=== PATIENT | female | born 1940 | race Hispanic/Latino ===

== ENCOUNTER 2019-05-30 16:18 | Emergency (ER) | payer MEDICARE ==
--- NOTE | 2019-05-30 16:28 | Event Note ---
ED Screening Note Date of service: 05/30/19 Time: 16:21 ED Screening Note: This is a 78 y.o. F. that presents to the ER with nosebleed, pain to lower lip, right great toe, and left knee s/p fall at home. PMH of HTN, A. fib, cirrhosis This initial assessment/diagnostic orders/clinical plan/treatment(s) is/are subject to change based on patients health status, clinical progression and re- assessment by fellow clinical providers in the ED. Further treatment and workup at subsequent clinical providers discretion. Patient/guardian urged not to elope from the ED as their condition may be serious if not clinically assessed and managed. Initial orders include: CT of head, XR left knee, right toes
--- NOTE | 2019-05-30 16:44 | Emergency Department Report ---
ED Fall HPI - General Chief Complaint: Fall Stated Complaint: FACE INJURY/FOOT Time Seen by Provider: 05/30/19 16:21 Source: patient, family Mode of arrival: Wheelchair - History of Present Illness Initial Comments: Patient is 78-year-old female with history of liver cirrhosis and hypertension. Patient brought to the emergency room accompanied by her 2 daughters for evaluation after a fall that happened just prior to coming to the ER. Patient tripped and fell and hit her head with complaint of minor headache and abrasion to the lower lip. Patient denied any loss of consciousness, new weakness numbness or tingling sensation. Patient is also complaining of lower back pain and right knee pain. Patient is on Elliquis for atrial fibrillation. 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 Fall Witnessed: yes, by family Place Fall Occurred: home Loss of Consciousness: none Prolonged Down Time?: no Symptoms Prior to Fall: none Location: head, face, back Location - Extremities: Right: Knee, Foot Severity: moderate Severity scale (0 -10): 3 Quality: sharp Context: tripped/slipped Associated Symptoms: denies - Related Data Allergies Allergy/AdvReac Type Severity Reaction Status Date / Time Sulfa (Sulfonamide Allergy Unknown Verified 05/30/19 16:25 Antibiotics) ED Review of Systems ROS: Stated complaint: FACE INJURY/FOOT Other details as noted in HPI Comment: All other systems reviewed and negative Constitutional: denies: chills, fever Respiratory: denies: cough, orthopnea, shortness of breath, SOB with exertion, SOB at rest Cardiovascular: denies: chest pain, palpitations Gastrointestinal: denies: abdominal pain, nausea, vomiting, diarrhea, constipation, hematemesis, hematochezia Musculoskeletal: back pain Neurological: denies: headache, weakness, numbness, paresthesias, confusion, abnormal gait ED Past Medical Hx - Past Medical History Previous Medical History?: Yes Hx Hypertension: Yes Hx Liver Disease: Yes (cirrhosis) Hx Arthritis: Yes Additional medical history: A.Fib - Surgical History Past Surgical History?: Yes Additional Surgical History: bilateral knee replacement - Social History Smoking Status: Never Smoker Substance Use Type: Prescribed ED Physical Exam - General Limitations: Physical Limitation General appearance: alert, in no apparent distress - Head Head exam: Present: atraumatic, normocephalic, normal inspection - Eye Eye exam: Present: normal appearance, PERRL - ENT ENT exam: Present: other (abrasion to the lower lip) - Neck Neck exam: Present: normal inspection, full ROM. Absent: tenderness, meningismus, lymphadenopathy, thyromegaly - Respiratory Respiratory exam: Present: normal lung sounds bilaterally - Cardiovascular Cardiovascular Exam: Present: regular rate, normal rhythm, normal heart sounds - GI/Abdominal GI/Abdominal exam: Present: soft, distended, normal bowel sounds. Absent: tenderness, guarding, rebound, rigid, organomegaly, mass, bruit, pulsatile mass, hernia - Extremities Exam Extremities exam: Present: normal inspection, full ROM, normal capillary refill. Absent: tenderness, pedal edema, calf tenderness - Back Exam Back exam: Present: normal inspection, full ROM. Absent: tenderness, CVA tenderness (R), CVA tenderness (L), muscle spasm, paraspinal tenderness, vertebral tenderness - Neurological Exam Neurological exam: Present: alert, oriented X3, CN II-XII intact, normal gait, reflexes normal - Psychiatric Psychiatric exam: Present: normal mood - Skin Skin exam: Present: warm, intact, normal color ED Course Vital Signs 05/30/19 16:20 Temperature 97.2 F L Pulse Rate 99 H Respiratory 18 Rate Blood Pressure 120/69 O2 Sat by Pulse 99 Oximetry ED Medical Decision Making - Radiology Data Radiology results: report reviewed - Medical Decision Making Patient is 78-year-old female with history of liver cirrhosis and hypertension. Patient brought to the emergency room accompanied by her 2 daughters for evaluation after a fall that happened just prior to coming to the ER. Patient tripped and fell and hit her head with complaint of minor headache and abrasion to the lower lip. Patient denied any loss of consciousness, new weakness numbness or tingling sensation. Patient is also complaining of lower back pain and right knee pain. Patient is on Elliquis for atrial fibrillation. CT brain is negative for acute finding. CT lumbar is negative for acute finding. CT facial bone is unremarkable. Right knee x-ray is negative for acute finding. Patient stated that she does not want any pain medicine. Patient discharged home in stable condition, alert oriented 3. Patient discharged with her to daughter. Patient and her daughter advised to return to the ER if symptoms get worse. Critical care attestation.: If time is entered above; I have spent that time in minutes in the direct care of this critically ill patient, excluding procedure time. ED Disposition Clinical Impression: Fall, Head injury Disposition: DC-01 TO HOME OR SELFCARE Is pt being admited?: No Condition: Stable Instructions: Minor Head Injury (ED), Fall Prevention (ED) Referrals: AMERICA NEGRO MD [Primary Care Provider] - 3-5 Days
--- NOTE | 2019-05-30 17:08 | XRay Report ---
RIGHT KNEE 3 VIEW(S) INDICATION / CLINICAL INFORMATION: anterior knee pain, s/p fall COMPARISON: None available. FINDINGS: Intact total knee prosthesis without evidence of hardware failure, loosening or periprosthetic fractu re. No excess joint fluid is seen. Vascular calcifications are noted. Signer Name: Nawaf Salvador MD Signed: 05/30/2019 5:03 PM Workstation Name: [id number]
--- NOTE | 2019-05-30 17:10 | XRay Report ---
RIGHT TOE(S) 3 VIEW(S) INDICATION / CLINICAL INFORMATION: great toe pain, r/o fx, s/p fall COMPARISON: None available. FINDINGS: BONES / JOINT(S): No acute fracture or malalignment of the great toe. Moderate osteoarthritic changes are present at multiple midfoot joints and at the great toe metatarsophalangeal joint. Diffuse, sugg estive osteopenia is present. SOFT TISSUES: Diffuse vascular calcifications are present. ADDITIONAL FINDINGS: None. Signer Name: Nawaf Salvador MD Signed: 05/30/2019 5:05 PM Workstation Name: [id number]
--- NOTE | 2019-05-30 19:30 | Cat Scan Report ---
CT LUMBAR SPINE WITHOUT CONTRAST INDICATION / CLINICAL INFORMATION: fall. TECHNIQUE: Axial CT images were obtained through the lumbar spine. Sagittal and coronal reformatted images were produced. All CT scans at this location are performed using CT dose reduction for ALARA by means of a utomated exposure control. COMPARISON: None available. FINDINGS: Diffuse, subjective osteopenia is present. No acute fracture or malalignment of the lumbar spine is i dentified. Advanced degenerative changes are present at the sacroiliac joints, facet joints, and inte rvertebral discs of the lumbar spine. Grade 1 anterolisthesis of L5 over S1 is noted. Vacuum disc phe nomenon is present in L1-L2 and L2-L3 disc spaces. Incidental note is made of a dilated extrarenal pelvis of the left kidney and large volume of ascites in the visualized abdomen. Small left and trace right pleural effusions are present. IMPRESSION: 1. No acute fracture or malalignment of the lumbar spine. 2. Large volume of ascites and small pleural effusions. Signer Name: Nawaf Salvador MD Signed: 05/30/2019 7:26 PM Workstation Name: [id number]
--- NOTE | 2019-05-30 19:34 | Cat Scan Report ---
CT head/brain without contrast INDICATION: fall injury. TECHNIQUE: Routine CT head without contrast. All CT scans at this location are performed using CT dos e reduction for ALARA by means of automated exposure control. COMPARISON: None. FINDINGS: BRAIN / INTRACRANIAL CONTENTS: No acute hemorrhage, mass effect, midline shift, or hydrocephalus. No appreciable acute large territorial or lacunar infarct. ORBITS: No significant abnormality of visualized orbits. SINUSES / MASTOIDS: No significant abnormality of visualized sinuses and mastoid air cells. ADDITIONAL FINDINGS: None. IMPRESSION: 1. No acute intracranial abnormality. Signer Name: Nawaf Salvador MD Signed: 05/30/2019 7:30 PM Workstation Name: [id number]
--- NOTE | 2019-05-30 19:58 | Cat Scan Report ---
The CT facial bones without contrast CLINICAL HISTORY: Facial pain and trauma FINDINGS: There is no CT evidence of acute fracture involving the facial bones on the axial images at . The coronal and sagittal reconstructions are suboptimal. The paranasal sinuses are clear without ai r-fluid levels. There is mild deviation of the nasal septum toward the left at. The optic globes demo nstrate appropriate size and configuration. No significant post septal inflammatory changes are ident ified at. The visualized mastoid air cells are pneumatized. 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 All CT scans at this location are performed using the CT do se reduction for ALARA by means of automated exposure control. IMPRESSION: There is no CT ends of acute fracture involving the facial bones. Signer Name: Joseph Pope MD Signed: 05/30/2019 7:54 PM Workstation Name: [id number]
[2019-05-30 20:46] VITALS: BP 111/81
== END 2019-05-30 20:46 | disposition home or self-care (01) ==
LOC: ED 16:18
DX: S00.511A Abrasion of lip, initial encounter (principal); S09.90XA Unspecified injury of head, initial encounter; M54.5 Low back pain; M25.561 Pain in right knee; I10 Essential (primary) hypertension; K74.60 Unspecified cirrhosis of liver; M19.90 Unspecified osteoarthritis, unspecified site; I48.91 Unspecified atrial fibrillation; Z79.01 Long term (current) use of anticoagulants; Z96.653 Presence of artificial knee joint, bilateral; Z88.2 Allergy status to sulfonamides; W01.10XA Fall on same level from slipping, tripping and stumbling with subsequent striking against unspecified object, initial encounter; Y93.89 Activity, other specified; Y92.019 Unspecified place in single-family (private) house as the place of occurrence of the external cause; Y99.8 Other external cause status
CPT/HCPCS: 70450; 70486; 72131

== ENCOUNTER 2019-06-06 08:38 | Inpatient (IN) | payer MEDICARE ==
[2019-06-06 09:22] LABS: Basophils % (Auto) 0.8 % (0.0-1.8); Eosinophils # (Auto) 0.1 K/mm3 (0.0-0.4); Eosinophils % (Auto) 3.9 % (0.0-4.3); Hematocrit 32.5 % (30.3-42.9); Hemoglobin 10.6 gm/dl (10.1-14.3); Lymphocytes # (Auto) 0.6 K/mm3 (1.2-5.4); Lymphocytes % (Auto) 22.7 % (13.4-35.0); Mean Corpuscular HGB Conc 33 % (30-34); Mean Corpuscular Volume 87 fl (79-97); Monocytes # (Auto) 0.2 K/mm3 (0.0-0.8); Monocytes % (Auto) 8.8 % (0.0-7.3); Platelet Count 132 K/mm3 (140-440); Red Blood Count 3.72 M/mm3 (3.65-5.03); Red Cell Distribution Width 16.9 % (13.2-15.2)
--- NOTE | 2019-06-06 09:34 | Emergency Department Report ---
ED General Adult HPI - General Chief complaint: GI Bleed Stated complaint: NOSE BLEED Time Seen by Provider: 06/06/19 08:52 Source: patient Mode of arrival: Ambulatory Limitations: No Limitations - History of Present Illness Initial comments: 78-year-old female was seen here one week ago after a fall. CT of the head and face was negative for acute injury. She was on anticoagulants at that time. She told the nurse that she has just taken 2 doses of Eliquis over the last 24 hours. She also admitted to me that she took 3 Naprosyn. She developed a n osebleed draining posteriorly today. She states that she spit up a clot. She comes in holding pressure on her nose. She states that she cannot identify what side of her nose was bleeding. However on inspection appears to be likely the right side. He denies any shortness of breath but felt like she was choking when she states she manually remove the clot from her mouth. Patient states that Dr. 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 She states that she receives almost weekly paracentesis at [facility]. She states "my belly is about to burst". She is not on dialysis but has chronic kidney disease. -: minutes(s) Severity scale (0 -10): 0 Associated Symptoms: other (progressive abdominal distention secondary to ascites) Treatments Prior to Arrival: none - Related Data Allergies Allergy/AdvReac Type Severity Reaction Status Date / Time Sulfa (Sulfonamide Allergy Unknown Verified 05/30/19 16:25 Antibiotics) ED Review of Systems ROS: Stated complaint: NOSE BLEED Other details as noted in HPI Constitutional: denies: chills, fever Eyes: denies: eye pain, eye discharge, vision change ENT: as per HPI. denies: ear pain, throat pain Respiratory: denies: cough, shortness of breath, wheezing Cardiovascular: denies: chest pain, palpitations Endocrine: no symptoms reported Gastrointestinal: other (abdominal distention). denies: abdominal pain, nausea, diarrhea Genitourinary: denies: urgency, dysuria, discharge Musculoskeletal: denies: back pain, joint swelling, arthralgia Skin: denies: rash, lesions Neurological: denies: headache, weakness, paresthesias Psychiatric: denies: anxiety, depression Hematological/Lymphatic: as per HPI. denies: easy bleeding, easy bruising ED Past Medical Hx - Past Medical History Previous Medical History?: Yes Hx Hypertension: Yes Hx CVA: No Hx Heart Attack/AMI: No Hx Congestive Heart Failure: No Hx Diabetes: No Hx Deep Vein Thrombosis: No Hx Pulmonary Embolism: No Hx GERD: No Hx Liver Disease: Yes (cirrhosis) Hx Renal Disease: Yes Hx of Cancer: No Hx Sickle Cell Disease: No Hx Arthritis: Yes Hx Headaches / Migraines: No Hx Seizures: No Hx Kidney Stones: No Hx Psychiatric Treatment: No Hx Asthma: No Hx COPD: No Hx Tuberculosis: No Hx Dementia: No Hx HIV: No Additional medical history: A.Fib - Surgical History Past Surgical History?: Yes Hx Coronary Stent: No Hx Open Heart Surgery: No Hx Pacemaker: No Hx Internal Defibrillator: No Hx Cholecystectomy: No Hx Appendectomy: No Hx Breast Surgery: No Additional Surgical History: bilateral knee replacement - Social History Smoking Status: Former Smoker Substance Use Type: None ED Physical Exam - General Limitations: No Limitations General appearance: other (chronically ill-appearing) - Head Head exam: Present: other (acquired nasal deformity which looks chronic) - Eye Eye exam: Absent: scleral icterus - ENT ENT exam: Present: other (there is a minimal amount of blood in the posterior pharynx. Looks like right sided epistaxis which is not at all active) - Neck Neck exam: Absent: tenderness, meningismus - Respiratory Respiratory exam: Present: normal lung sounds bilaterally - Cardiovascular Cardiovascular Exam: Present: regular rate, irregular rhythm, systolic murmur - GI/Abdominal GI/Abdominal exam: Present: soft, distended, normal bowel sounds, other (tense ascites) - Extremities Exam Extremities exam: Present: normal inspection - Neurological Exam Neurological exam: Present: alert, oriented X3, CN II-XII intact. Absent: motor sensory deficit - Psychiatric Psychiatric exam: Present: anxious, flat affect - Skin Skin exam: Present: warm, dry, intact, normal color. Absent: rash ED Course Vital Signs 06/06/19 06/06/19 06/06/19 08:47 08:53 09:00 Temperature 98.6 F Pulse Rate 117 H 115 H 102 H Respiratory 14 18 16 Rate Blood Pressure 126/73 119/63 Blood Pressure 126/73 [Right] O2 Sat by Pulse 100 100 100 Oximetry 06/06/19 06/06/19 06/06/19 09:15 09:31 09:45 Temperature Pulse Rate 108 H 103 H 113 H Respiratory 10 L 12 17 Rate Blood Pressure 119/63 119/63 119/63 Blood Pressure [Right] O2 Sat by Pulse 99 98 98 Oximetry 06/06/19 10:00 Temperature Pulse Rate 100 H Respiratory 13 Rate Blood Pressure 121/60 Blood Pressure [Right] O2 Sat by Pulse 100 Oximetry - Reevaluation(s) Reevaluation #1: This point I would prefer to observe the patient rather than applying a Rhino Rocket. It looks like her epistaxis has or is resolving. We will see if she needs intervention. She has tense ascites anyway. She will ultimately likely be admitted. 06/06/19 09:36 Reevaluation #2: Bleeding remains resolved. Patient will be admitted for further care and treatment by the hospitalist service. 06/06/19 10:30 ED Medical Decision Making - Lab Data Result diagrams: 06/06/19 09:02 06/06/19 09:02 - EKG Data -: EKG Interpreted by Me Rate: tachycardia - EKG Data Interpretation: nonspecific ST-T wave ilene, other (atrial fibrillation with rapid ventricular response) - Radiology Data Radiology results: report reviewed, image reviewed Cardiomegaly, chronic changes. Critical care attestation.: If time is entered above; I have spent that time in minutes in the direct care of this critically ill patient, excluding procedure time. ED Disposition Clinical Impression: Epistaxis, Renal insufficiency, Atrial fibrillation with rapid ventricular response, Hypokalemia Ascites Qualifiers: Ascites type: other type Qualified Code(s): R18.8 - Other ascites Disposition: OP ADMIT IP TO THIS HOSP Is pt being admited?: Yes Does the pt Need Aspirin: No Condition: Stable Forms: Accompanied Note Time of Disposition: 10:31
[2019-06-06 09:39] LABS: INR 1.68 (0.87-1.13); Partial Thromboplastin Time 41.7 Sec. (24.2-36.6)
[2019-06-06 09:41] LABS: Creatine Kinase MB 1.4 ng/mL (0.0-4.0)
[2019-06-06 09:42] LABS: Alanine Aminotransferase 6 units/L (7-56); Albumin 2.9 g/dL (3.9-5); BUN/Creatinine Ratio 23; Blood Urea Nitrogen 42 mg/dL (7-17); Calcium 9.1 mg/dL (8.4-10.2); Hemolysis Index 0
[2019-06-06 09:44] LABS: Bilirubin,Direct < 0.2 mg/dL (0-0.2)
--- NOTE | 2019-06-06 10:00 | XRay Report ---
CHEST 1 VIEW INDICATION: Shortness of breath. COMPARISON: None. FINDINGS: Support devices: None. Heart: Upper limits of normal. Lungs/Pleura: No consolidation or effusion. There are mild increased reticular markings which may be chronic. IMPRESSION: 1. Mild increased reticular markings which may be chronic. Heart size is at the upper limits of basia l. Signer Name: Edvin Fonseca MD Signed: 06/06/2019 9:55 AM Workstation Name: [id number]
[2019-06-06] MEDS ORDERED: K-DUR PO ONE (10:11)
[2019-06-06] MEDS ORDERED: ZOFRAN IV PRN (16:07)
[2019-06-06] MEDS ORDERED: SODIUM CHLORIDE FLUSH SYRINGE 10 ML IV PRN (16:07)
[2019-06-06] MEDS: LASIX PO SCH (18:02)
[2019-06-06] MEDS ORDERED: NON-FORMULARY (Furosemide 40 MG) PO SCH (22:00)
[2019-06-06] MEDS ORDERED: CYCLOBENZAPRINE PO SCH (22:00)
[2019-06-06] MEDS: SODIUM CHLORIDE FLUSH SYRINGE 10 ML IV SCH (22:14)
[2019-06-06] MEDS: FLEXERIL PO SCH (22:14)
--- NOTE | 2019-06-06 23:32 | History and Physical Report ---
History of Present Illness Date of admission: 06/06/19 10:31 Chief complaint: i have bleeding from my nose History of present illness: 78 year old woman who presented to the hospital when he was bleeding. She takes eliquis blood thinner for atrial fibrillation. 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 She fell and fell on her face the day before. After which she noted that she had a nosebleed, she had blood and blood clots running down her throat and coming out of her mouth. She then lay down to sleep and then had blood running down her throat. Have family came to visit her and then brought her to the hospital -she is also c/o abdominal distension, states that she is due for paracentesis soon She was recently taken off naproxen due [place] ckd after having taking it for many years Pmh Hypertension, fatty liver disease with cirrhosis receives paracentesis every 1-2 weeks, afib on eliquis, ckd, gout Psh Bilateral knee replacement Social history Former smoker, denies the use of alcohol illicit drugs Medications and Allergies Allergies Allergy/AdvReac Type Severity Reaction Status Date / Time Sulfa (Sulfonamide Allergy Unknown Verified 05/30/19 16:25 Antibiotics) Home Medications Medication Instructions Recorded Confirmed Last Taken Type Allopurinol 100 mg PO QDAY 06/06/19 06/06/19 Unknown History Apixaban [Eliquis] 5 mg PO BID 06/06/19 06/06/19 06/05/19 20:00 History Cyclobenzaprine 7.5 MG TAB 5 mg PO QHS 06/06/19 06/06/19 06/05/19 History Furosemide 40 mg PO BID 06/06/19 06/06/19 06/05/19 History Metoprolol Tartrate 50 mg PO QDAY 06/06/19 06/06/19 06/05/19 History 50 Spironolactone 25 mg QDAY 06/06/19 06/06/19 06/05/19 History traMADol 50 mg PO PRN 06/06/19 Unknown History Active Meds: Active Medications Acetaminophen (Tylenol) 650 mg PO Q4H PRN PRN Reason: Pain MILD(1-3)/Fever >100.5/SMART Allopurinol (Zyloprim) 100 mg PO QDAY [facility] Cyclobenzaprine HCl (Flexeril) 5 mg PO QHS [facility] Last Admin: 06/06/19 22:14 Dose: 5 mg Documented by: Furosemide (Lasix) 40 mg PO 0600,1800 [facility] Last Admin: 06/06/19 18:02 Dose: 40 mg Documented by: Hydrophilic Ointment (Vaseline) 1 applic TP Q12H [facility] Metoprolol Succinate (Toprol Xl) 50 mg PO QDAY [facility] Ondansetron HCl (Zofran) 4 mg IV Q8H PRN PRN Reason: Nausea And Vomiting Sodium Chloride (Sodium Chloride Flush Syringe 10 Ml) 10 ml IV BID [facility] Last Admin: 06/06/19 22:14 Dose: 10 ml Documented by: Sodium Chloride (Sodium Chloride Flush Syringe 10 Ml) 10 ml IV PRN PRN PRN Reason: LINE FLUSH Spironolactone (Aldactone) 25 mg PO QDAY [facility] Review of Systems All systems: negative Constitutional: no anorexia Ears, nose, mouth and throat: no ear pain Breasts: deferred Cardiovascular: no chest pain Respiratory: no cough Gastrointestinal: no abdominal pain Rectal: no pain Musculoskeletal: no neck stiffness Integumentary: no rash Neurological: head injury Psychiatric: no anxiety Endocrine: no cold intolerance Hematologic/Lymphatic: easy bruising Allergic/Immunologic: no urticaria Exam - Constitutional Vitals: Temp Pulse Resp BP Pulse Ox 97.8 F 96 H 18 126/64 98 06/06/19 19:49 06/06/19 19:49 06/06/19 19:49 06/06/19 19:49 06/06/19 19:49 General appearance: Present: no acute distress, well-nourished - EENT Eyes: Present: PERRL ENT: hearing intact, clear oral mucosa - Neck Neck: Present: supple, normal ROM - Respiratory Respiratory effort: normal Respiratory: bilateral: CTA - Cardiovascular Heart Sounds: Present: S1 & S2. Absent: rub, click - Extremities Extremities: pulses symmetrical, No edema Peripheral Pulses: within normal limits - Abdominal General gastrointestinal: Present: soft, non-tender, non-distended, normal bowel sounds Female genitourinary: Present: normal - Integumentary Integumentary: Present: clear, warm, dry (bruises and echymosis on UE) - Musculoskeletal Musculoskeletal: gait normal, strength equal bilaterally - Psychiatric Psychiatric: appropriate mood/affect, intact judgment & insight - Neurologic Neurologic: CNII-XII intact, moves all extremities Results - Labs CBC & Chem 7: 06/06/19 09:02 06/06/19 09:02 Labs: Laboratory Last Values WBC 2.5 K/mm3 (4.5-11.0) L 06/06/19 09:02 RBC 3.72 M/mm3 (3.65-5.03) 06/06/19 09:02 Hgb 10.6 gm/dl (10.1-14.3) 06/06/19 09:02 Hct 32.5 % (30.3-42.9) 06/06/19 09:02 MCV 87 fl (79-97) 06/06/19 09:02 MCH 29 pg (28-32) 06/06/19 09:02 MCHC 33 % (30-34) 06/06/19 09:02 RDW 16.9 % (13.2-15.2) H 06/06/19 09:02 Plt Count 132 K/mm3 (140-440) L 06/06/19 09:02 Lymph % (Auto) 22.7 % (13.4-35.0) 06/06/19 09:02 [place] % (Auto) 8.8 % (0.0-7.3) H 06/06/19 09:02 Eos % (Auto) 3.9 % (0.0-4.3) 06/06/19 09:02 Baso % (Auto) 0.8 % (0.0-1.8) 06/06/19 09:02 Lymph # 0.6 K/mm3 (1.2-5.4) L 06/06/19 09:02 [place] # 0.2 K/mm3 (0.0-0.8) 06/06/19 09:02 Eos # 0.1 K/mm3 (0.0-0.4) 06/06/19 09:02 Baso # 0.0 K/mm3 (0.0-0.1) 06/06/19 09:02 Seg Neutrophils % 63.8 % (40.0-70.0) 06/06/19 09:02 Seg Neutrophils # 1.6 K/mm3 (1.8-7.7) L 06/06/19 09:02 PT 19.4 Sec. (12.2-14.9) H 06/06/19 09:02 INR 1.68 (0.87-1.13) H 06/06/19 09:02 APTT 41.7 Sec. (24.2-36.6) H 06/06/19 09:02 Sodium 139 mmol/L (137-145) 06/06/19 09:02 Potassium 3.3 mmol/L (3.6-5.0) L 06/06/19 09:02 Chloride 103.2 mmol/L (98-107) 06/06/19 09:02 Carbon Dioxide 23 mmol/L (22-30) 06/06/19 09:02 16 mmol/L 06/06/19 09:02 BUN 42 mg/dL (7-17) H 06/06/19 09:02 1.8 mg/dL (0.7-1.2) H 06/06/19 09:02 Estimated GFR 27 ml/min 06/06/19 09:02 23 % 06/06/19 09:02 Glucose 111 mg/dL (65-100) H 06/06/19 09:02 Calcium 9.1 mg/dL (8.4-10.2) 06/06/19 09:02 Magnesium 2.30 mg/dL (1.7-2.3) 06/06/19 09:02 0.30 mg/dL (0.1-1.2) 06/06/19 09:02 < 0.2 mg/dL (0-0.2) 06/06/19 09:02 AST 14 units/L (5-40) 06/06/19 09:02 ALT 6 units/L (7-56) L 06/06/19 09:02 69 units/L (35-129) 06/06/19 09:02 35.0 umol/L (25-60) 06/06/19 09:10 32 units/L (30-135) 06/06/19 09:02 CK-MB (CK-2) 1.4 ng/mL (0.0-4.0) 06/06/19 09:02 CK-MB (CK-2) Rel Index 4.3 (0-4) H 06/06/19 09:02 6.5 g/dL (6.3-8.2) 06/06/19 09:02 2.9 g/dL (3.9-5) L 06/06/19 09:02 0.8 % 06/06/19 09:02 Blood Type A POSITIVE 06/06/19 09:02 Antibody Screen Negative 06/06/19 09:02 Assessment and Plan Assessment and plan: 78F who presents after falling on her face, pw nasal bleeding Epixtaxis Eliquis on hold. Vaseline to nostrils AFib/hypercoagulable state Continue rate control meds Eliquis on hold CLD Continue diuretics, paracentesis ordered CKD avoid nephrotoxin Dvt ppx Scds gout cont home meds
[2019-06-07] MEDS: VASELINE TP SCH ×2 (00:17→12:40)
[2019-06-07] MEDS: TYLENOL PO PRN ×2 (01:56→15:50)
[2019-06-07] MEDS: LASIX PO SCH ×2 (05:41→17:35)
--- NOTE | 2019-06-07 09:32 | Cat Scan Report ---
CT HEAD WITHOUT CONTRAST INDICATION / CLINICAL INFORMATION: fell on face. TECHNIQUE: All CT scans at this location are performed using CT dose reduction for ALARA by means of automated e xposure control. COMPARISON: CT dated 05/30/19 FINDINGS: HEMORRHAGE: None. EXTRA-AXIAL SPACES: Normal in size and morphology for the patient's age. VENTRICULAR SYSTEM: Normal in size and morphology for the patient's age. CEREBRAL PARENCHYMA: No significant abnormality. No acute territorial infarct. MIDLINE SHIFT OR HERNIATION: None. CEREBELLUM / BRAINSTEM: No significant abnormality. ORBITS: Normal as visualized. SOFT TISSUES of HEAD: Mild soft tissue swelling of the forehead. CALVARIUM: No significant abnormality. PARANASAL SINUSES / MASTOID AIR CELLS: Normal as visualized. ADDITIONAL FINDINGS: None. IMPRESSION: 1. No acute intracranial abnormality. 2. Mild forehead soft tissue swelling. Signer Name: Becky Cabral MD Signed: 06/07/2019 9:27 AM Workstation Name: [id number]
--- NOTE | 2019-06-07 09:33 | Cat Scan Report ---
CT MAXILLOFACIAL WITHOUT CONTRAST INDICATION / CLINICAL INFORMATION: fell on face. TECHNIQUE: All CT scans at this location are performed using CT dose reduction for ALARA by means of automated e xposure control. COMPARISON: CT dated 05/30/19 FINDINGS: FACIAL BONES: No fracture or other significant abnormality. PARANASAL SINUSES: No significant abnormality. ORBITS: No significant abnormality. VISUALIZED INTRACRANIAL STRUCTURES: No significant abnormality. ADDITIONAL FINDINGS: None. IMPRESSION: 1. No significant abnormality. No significant change. Signer Name: Becky Cabral MD Signed: 06/07/2019 9:29 AM Workstation Name: [id number]
[2019-06-07] MEDS: TOPROL XL PO SCH (09:47)
[2019-06-07] MEDS: ALDACTONE PO SCH (09:47)
[2019-06-07] MEDS: ZYLOPRIM PO SCH (09:47)
[2019-06-07] MEDS: SODIUM CHLORIDE FLUSH SYRINGE 10 ML IV SCH ×2 (09:48→22:17)
[2019-06-07] MEDS ORDERED: NON-FORMULARY (Spironolactone 25 MG) PO SCH (10:00)
[2019-06-07] MEDS ORDERED: NON-FORMULARY (Metoprolol Tartrate 50 MG) PO SCH (10:00)
[2019-06-07] MEDS ORDERED: ALLOPURINOL 100 MG PO SCH (10:00)
--- NOTE | 2019-06-07 18:23 | Progress Note ---
Assessment and Plan Assessment and plan: 78F who presents after falling on her face, pw nasal bleeding Epixtaxis Eliquis on hold. Vaseline to nostrils AFib/hypercoagulable state Continue rate control meds Eliquis on hold CLD Continue diuretics, paracentesis ordered CKD avoid nephrotoxin Dvt ppx Scds gout cont home meds Hospitalist Physical - Constitutional Vitals: Temp Pulse Resp BP Pulse Ox 97.8 F 85 18 128/61 97 06/07/19 07:46 06/07/19 10:00 06/07/19 10:00 06/07/19 09:47 06/07/19 10:00 General appearance: Present: no acute distress, well-nourished Results - Labs CBC & Chem 7: 06/06/19 09:02 06/06/19 09:02 Labs: Laboratory Last Values WBC 2.5 K/mm3 (4.5-11.0) L 06/06/19 09:02 RBC 3.72 M/mm3 (3.65-5.03) 06/06/19 09:02 Hgb 10.6 gm/dl (10.1-14.3) 06/06/19 09:02 Hct 32.5 % (30.3-42.9) 06/06/19 09:02 MCV 87 fl (79-97) 06/06/19 09:02 MCH 29 pg (28-32) 06/06/19 09:02 MCHC 33 % (30-34) 06/06/19 09:02 RDW 16.9 % (13.2-15.2) H 06/06/19 09:02 Plt Count 132 K/mm3 (140-440) L 06/06/19 09:02 Lymph % (Auto) 22.7 % (13.4-35.0) 06/06/19 09:02 [place] % (Auto) 8.8 % (0.0-7.3) H 06/06/19 09:02 Eos % (Auto) 3.9 % (0.0-4.3) 06/06/19 09:02 Baso % (Auto) 0.8 % (0.0-1.8) 06/06/19 09:02 Lymph # 0.6 K/mm3 (1.2-5.4) L 06/06/19 09:02 [place] # 0.2 K/mm3 (0.0-0.8) 06/06/19 09:02 Eos # 0.1 K/mm3 (0.0-0.4) 06/06/19 09:02 Baso # 0.0 K/mm3 (0.0-0.1) 06/06/19 09:02 Seg Neutrophils % 63.8 % (40.0-70.0) 06/06/19 09:02 Seg Neutrophils # 1.6 K/mm3 (1.8-7.7) L 06/06/19 09:02 PT 19.4 Sec. (12.2-14.9) H 06/06/19 09:02 INR 1.68 (0.87-1.13) H 06/06/19 09:02 APTT 41.7 Sec. (24.2-36.6) H 06/06/19 09:02 Sodium 139 mmol/L (137-145) 06/06/19 09:02 Potassium 3.3 mmol/L (3.6-5.0) L 06/06/19 09:02 Chloride 103.2 mmol/L (98-107) 06/06/19 09:02 Carbon Dioxide 23 mmol/L (22-30) 06/06/19 09:02 16 mmol/L 06/06/19 09:02 BUN 42 mg/dL (7-17) H 06/06/19 09:02 1.8 mg/dL (0.7-1.2) H 06/06/19 09:02 Estimated GFR 27 ml/min 06/06/19 09:02 23 % 06/06/19 09:02 Glucose 111 mg/dL (65-100) H 06/06/19 09:02 4.9 % (4-6) 06/07/19 03:39 Calcium 9.1 mg/dL (8.4-10.2) 06/06/19 09:02 Magnesium 2.30 mg/dL (1.7-2.3) 06/06/19 09:02 0.30 mg/dL (0.1-1.2) 06/06/19 09:02 < 0.2 mg/dL (0-0.2) 06/06/19 09:02 AST 14 units/L (5-40) 08/10/19 09:02 ALT 6 units/L (7-56) L 06/06/19 09:02 69 units/L (35-129) 06/06/19 09:02 35.0 umol/L (25-60) 06/06/19 09:10 32 units/L (30-135) 06/06/19 09:02 CK-MB (CK-2) 1.4 ng/mL (0.0-4.0) 06/06/19 09:02 CK-MB (CK-2) Rel Index 4.3 (0-4) H 06/06/19 09:02 6.5 g/dL (6.3-8.2) 06/06/19 09:02 2.9 g/dL (3.9-5) L 06/06/19 09:02 0.8 % 06/06/19 09:02 Blood Type A POSITIVE 06/06/19 09:02 Antibody Screen Negative 06/06/19 09:02 Active Medications - Current Medications Current Medications: Generic Name Dose Route Start Last Admin Trade Name Freq PRN Reason Stop Dose Admin Acetaminophen 650 mg 06/06/19 16:07 06/07/19 15:50 Tylenol PO 650 mg Q4H PRN Administration Pain MILD(1-3)/Fever >100.5/SMART Allopurinol 100 mg 06/07/19 10:00 06/07/19 09:47 Zyloprim PO 100 mg QDAY DAMARIS Administration Cyclobenzaprine HCl 5 mg 06/06/19 22:00 06/06/19 22:14 Flexeril PO 5 mg QHS DAMARIS Administration Furosemide 40 mg 06/06/19 18:00 06/07/19 17:35 Lasix PO 40 mg 0600,1800 DAMARIS Administration Hydrophilic Ointment 1 applic 06/06/19 23:45 06/07/19 12:40 Vaseline TP 1 applic Q12H DAMARIS Administration Metoprolol Succinate 50 mg 06/07/19 10:00 06/07/19 09:47 Toprol Xl PO 50 mg QDAY DAMARIS Administration Ondansetron HCl 4 mg 06/06/19 16:07 Zofran IV Q8H PRN Nausea And Vomiting Sodium Chloride 10 ml 06/06/19 22:00 06/07/19 09:48 Sodium Chloride Flush Syringe 10 Ml IV 10 ml BID DAMARIS Administration Sodium Chloride 10 ml 06/06/19 16:07 Sodium Chloride Flush Syringe 10 Ml IV PRN PRN LINE FLUSH Spironolactone 25 mg 06/07/19 10:00 06/07/19 09:47 Aldactone PO 25 mg QDAY DAMARIS Administration
--- NOTE | 2019-06-07 18:39 | Discharge Summary ---
Providers - Providers Date of Admission: 06/06/19 10:31 Attending physician: LAVERNE JEROME MD Hospitalization Condition: Stable Hospital course: 78F who presents after falling on her face, pw nasal bleeding Epixtaxis Eliquis on hold. Vaseline to nostrils,. resolved AFib/hypercoagulable state Continue rate control meds Eliquis on hold CLD Continue diuretics, paracentesis ordered, but patient prefers to have it done as an outpatient CKD avoid nephrotoxin Dvt ppx Scds gout cont home meds Disposition: DC-01 TO HOME OR SELFCARE Time spent for discharge: 33 mins Core Measure Documentation - Palliative Care Palliative Care/ Comfort Measures: Not Applicable - Core Measures Any of the following diagnoses?: none Exam - Constitutional Vitals: Temp Pulse Resp BP Pulse Ox 97.8 F 85 18 128/61 97 06/07/19 07:46 06/07/19 10:00 06/07/19 10:00 06/07/19 09:47 06/07/19 10:00 General appearance: Present: no acute distress, well-nourished - EENT Eyes: Present: PERRL ENT: hearing intact, clear oral mucosa - Neck Neck: Present: supple, normal ROM - Respiratory Respiratory effort: normal Respiratory: bilateral: CTA - Cardiovascular Heart Sounds: Present: S1 & S2. 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
[2019-06-07] MEDS ORDERED: MELATONIN PO PRN (19:09)
[2019-06-07] MEDS: FLEXERIL PO SCH (22:16)
[2019-06-08] MEDS: VASELINE TP SCH ×2 (00:03→13:49)
[2019-06-08] MEDS: LASIX PO SCH ×2 (05:46→17:59)
[2019-06-08] MEDS: ZYLOPRIM PO SCH (12:22)
[2019-06-08] MEDS: ALDACTONE PO SCH (12:22)
[2019-06-08] MEDS: TOPROL XL PO SCH (12:22)
--- NOTE | 2019-06-08 12:29 | Discharge Summary ---
Providers - Providers Date of Admission: 06/06/19 10:31 Attending physician: LAVERNE JEROME MD 06/08/19 09:02 Physical Therapy Evaluation and Treat [CONS] Routine Comment: Reason For Exam: Weakness Hospitalization Condition: Stable Hospital course: 78F who presents after falling on her face, pw nasal bleeding Epixtaxis Eliquis on hold. Vaseline to nostrils,. resolved AFib/hypercoagulable state Continue rate control meds Eliquis on hold CLD Continue diuretics, paracentesis ordered, albumin ordered CKD avoid nephrotoxin Dvt ppx Scds gout cont home meds Disposition: DC-01 TO HOME OR SELFCARE Time spent for discharge: 33 mins Core Measure Documentation - Palliative Care Palliative Care/ Comfort Measures: Not Applicable - Core Measures Any of the following diagnoses?: none Exam - Constitutional Vitals: Temp Pulse Resp BP Pulse Ox 97.8 F 82 20 109/62 98 06/08/19 08:09 06/08/19 10:00 06/08/19 08:09 06/08/19 08:09 06/08/19 10:00 General appearance: Present: no acute distress, well-nourished - EENT Eyes: Present: PERRL ENT: hearing intact, clear oral mucosa - Neck Neck: Present: supple, normal ROM - Respiratory Respiratory effort: normal Respiratory: bilateral: CTA - Cardiovascular Heart Sounds: Present: S1 & S2. Absent: rub, click - Extremities Extremities: pulses symmetrical, No edema Peripheral Pulses: within normal limits - Abdominal General gastrointestinal: Present: soft, non-tender, non-distended, normal bowel sounds Female genitourinary: Present: normal - Integumentary Integumentary: Present: clear, warm, dry - Musculoskeletal Musculoskeletal: gait normal, strength equal bilaterally - Psychiatric Psychiatric: appropriate mood/affect, intact judgment & insight - Neurologic Neurologic: CNII-XII intact, moves all extremities Plan Follow up with: [facility] NEGRO [Other] - 7 Days Forms: Accompanied Note Prescriptions: Melatonin [Melatonin 5MG TAB] 5 mg PO QHS PRN #30 tablet PRN Reason: Sleep
[2019-06-08] MEDS ORDERED: ALBURX 25% (ALBUMIN) IV ONE (13:00)
[2019-06-08 13:47] VITALS: BP 108/59
[2019-06-08] MEDS: SODIUM CHLORIDE FLUSH SYRINGE 10 ML IV SCH (13:49)
[2019-06-08] MEDS ORDERED: XYLOCAINE 1% 20 mL ONE (14:06)
--- NOTE | 2019-06-08 15:39 | Procedure Note ---
Date of procedure: 06/08/19 Pre-op diagnosis: ascites Post-op diagnosis: same Procedure: US paracentesis Findings: large ascites Anesthesia: local Surgeon: ELIZABETH CERDA Estimated blood loss: none Pathology: none Specimen disposition: discarded Condition: stable Disposition: floor
--- NOTE | 2019-06-08 15:44 | Ultrasound Report ---
ULTRASOUND-GUIDED PARACENTESIS HISTORY: ascites. PROCEDURE: The risks (including but not limited to bleeding, infection, and bowel injury) and benefi ts were explained to the patient and informed consent was obtained. A time out procedure was perform ed. Ultrasound was used to evaluate the abdomen and locate the largest ascites fluid pocket. Once the sk in was marked, the procedure site was prepped and draped in the usual sterile fashion and lidocaine w as used for local anesthesia. A skin breezy was made and a 5 [place] centesis catheter was placed. The patient was monitored closely throughout the procedure, and a total of 14,000 mL of clear yellow flu id was aspirated. No labs were ordered by the requesting physician. The patient tolerated the procedure well with no complications. IMPRESSION: Successful ultrasound-guided paracentesis as described. Signer Name: Elbert Matthews Jr, MD Signed: 06/08/2019 3:40 PM Workstation Name: [id number]
[2019-06-08] MEDS: TYLENOL PO PRN (15:47)
== END 2019-06-08 18:30 | disposition home health service (06) | DRG 151 ==
LOC: ED 08:38 → 2B-ACE 10:31
PROVIDERS: ADMIT Internal Medicine; ATTEND Internal Medicine
PROC: 0W9G30Z Drainage of Peritoneal Cavity with Drainage Device, Percutaneous Approach (ICD-10-PCS; principal; 2019-06-07)
DX: R04.0 Epistaxis (principal); D68.59 Other primary thrombophilia; R18.8 Other ascites; I48.91 Unspecified atrial fibrillation; R14.0 Abdominal distension (gaseous); N18.9 Chronic kidney disease, unspecified; M10.9 Gout, unspecified; K74.60 Unspecified cirrhosis of liver; I12.9 Hypertensive chronic kidney disease with stage 1 through stage 4 chronic kidney disease, or unspecified chronic kidney disease; Z96.653 Presence of artificial knee joint, bilateral; E87.6 Hypokalemia; M19.90 Unspecified osteoarthritis, unspecified site; Z79.01 Long term (current) use of anticoagulants; Z87.891 Personal history of nicotine dependence; Z88.2 Allergy status to sulfonamides; Z79.899 Other long term (current) drug therapy
CPT/HCPCS: 36415; 49083; 70450; 70486; 71045; 80048; 80076; 82140; 82550; 82553; 83036; 83735; 85025; 85610; 85730; 86850; 86900; 86901; 87116; 93005; 93010; 96374; G0378; A6250; P9047